=== PATIENT | female | born 1935 | race Caucasian/White ===

== ENCOUNTER 2021-06-17 10:06 | Outpatient (CLI) | payer MEDICARE, OTHER, SELFPAY ==
[2021-06-17 11:05] LABS: C Reactive Protein 6.7 mg/L (0.0-4.9)
[2021-06-17 11:43] LABS: Erythrocyte Sedimentation Rate 41 mm/hr (0-15)
== END 2021-06-17 10:07 | disposition home or self-care (01) ==
LOC: LAB 10:17
PROVIDERS: PCP Nurse Practitioner Family; Visit Provider Orthopaedic Surgery
DX: M25.551 Pain in right hip (principal); M70.61 Trochanteric bursitis, right hip
CPT/HCPCS: 36415; 85651; 86140

== ENCOUNTER 2021-06-24 13:46 | Outpatient (CLI) | payer MEDICARE, OTHER, SELFPAY ==
--- NOTE | 2021-06-24 14:30 | CT_ITS ---
WS: [id number] CT RIGHT HIP WITHOUT CONTRAST. HISTORY: M70.61 - Trochanteric bursitis, right hip Technique: All CT scans at [facility] use at least one of these dose optimization techniq ues: automated exposure control; mA and/or kV adjustment per patient size (includes targeted exams wh ere dose is matched to clinical indication); or iterative reconstruction. DLP: 866.9 mGycm COMPARISON: RIGHT hip radiograph 01/27/2021 Status post RIGHT hip arthroplasty. Position of the arthroplasty appears appropriate. No fractures. N o significant medial migration of the acetabular prosthesis. Subchondral lucency is noted in the supe rior acetabulum. Mild atrophy of the muscles and mild atherosclerotic changes within the femoral tad ry. No fusion of the SI joint. There is significant beam hardening artifact from the total hip arthroplasty along the greater trocha nter. Changes of greater trochanteric bursitis would not be evident. CT/CT hip RT wo con* [id number] IMPRESSION: Status post RIGHT hip arthroplasty which appears in good position and alignmen t. No acute fractures or loosening identified. Greater trochanter is obscured by artifact from the arthroplasty.
== END 2021-06-24 13:47 | disposition home or self-care (01) ==
LOC: RADWPI 13:52 → RAD 14:12
PROVIDERS: PCP Nurse Practitioner Family; Visit Provider Orthopaedic Surgery
DX: M70.61 Trochanteric bursitis, right hip (principal); M25.551 Pain in right hip; Z96.641 Presence of right artificial hip joint
CPT/HCPCS: 73700

== ENCOUNTER 2021-10-07 09:59 | Outpatient (CLI) | payer MEDICARE, OTHER, SELFPAY ==
--- NOTE | 2021-10-07 10:05 | XR_ITS ---
WS: [id number] SHOULDER RIGHT TECHNIQUE: 3 views of the right shoulder CLINICAL INFORMATION: IMPINGEMENT SYNDROME OF RIGHT SHOULDER COMPARISON: None. FINDINGS: Mild hypertrophic changes AC joint. Moderate downsloping acromion. Advanced degenerative arthritis gl enohumeral joint with hypertrophic spurring and joint space narrowing. Associated subchondral scleros is. Narrowing of the subacromial space. IMPRESSION: 1. Advanced degenerative arthritis glenohumeral joint with hypertrophic spurring. 2. Moderate downsloping acromion with narrowing of the subacromial space.
--- NOTE | 2021-10-07 10:05 | XR_ITS ---
WS: [id number] PROCEDURE: XR chest 2V* [id number] CLINICAL INFORMATION: CHEST PAIN, NON-CARDIAC COMPARISON: July 22, 2021 FINDINGS: Heart: Normal cardiac silhouette. Aortic calcification. Tortuous thoracic aorta. Lungs: Lungs are clear. No consolidation or pleural fluid. Moderate chronic emphysematous changes. Bones: Mild thoracic curve. Moderate thoracic kyphosis. Chronic appearing anterior wedging at the tho racolumbar junction XR/XR chest 2V* [id number] IMPRESSION: 1. Moderate chronic emphysematous changes. No acute pulmonary infiltrates. 2. No focal pneumonia or pleural fluid. 3. Moderate thoracic kyphosis with chronic anterior wedging at the thoracolumb ar junction unchanged from previous.
== END 2021-10-07 10:00 | disposition home or self-care (01) ==
PROVIDERS: PCP Nurse Practitioner Family; Visit Provider Family Medicine
DX: M75.41 Impingement syndrome of right shoulder (principal); M19.011 Primary osteoarthritis, right shoulder; R07.9 Chest pain, unspecified; M40.294 Other kyphosis, thoracic region; M48.55XA Collapsed vertebra, not elsewhere classified, thoracolumbar region, initial encounter for fracture
CPT/HCPCS: 71046; 73030

== ENCOUNTER 2021-10-22 08:21 | Outpatient (RCR) | payer MEDICARE, OTHER, SELFPAY | END 2021-10-31 23:59 | disposition home or self-care (01) | LOC: SPT 08:21 | PROVIDERS: PCP Nurse Practitioner Family; Referring Provider Family Medicine; Visit Provider Family Medicine | DX: M75.41 Impingement syndrome of right shoulder (principal) | CPT/HCPCS: 97161 ==

== ENCOUNTER 2021-12-17 08:25 | Outpatient (CLI) | payer MEDICARE, OTHER, SELFPAY ==
--- NOTE | 2021-12-17 08:34 | XR_ITS ---
WS: [id number] HIP WITH PELVIS RIGHT TECHNIQUE: 3 views of the right hip with pelvis CLINICAL INFORMATION: LEG PAIN, RIGHT COMPARISON: January 27, 2021 FINDINGS: Postoperative RIGHT SHARAN. Osteopenia. No acute fractures. Periarticular lucency involving the acetabul um. No evidence of hardware loosening. XR/XR hip RT 2-3V wo/w pel* [id number] IMPRESSION: 1. Normal RIGHT SHARAN. No evidence of hardware loosening. 2. Osteopenia. Periarticular lucency involving the acetabulum unchanged from p revious. 3. No acute fractures. Tonnis classification: na
== END 2021-12-17 08:26 | disposition home or self-care (01) ==
LOC: RAD 08:26
PROVIDERS: PCP Nurse Practitioner Family; Visit Provider Family Medicine
DX: M79.604 Pain in right leg (principal); Z96.641 Presence of right artificial hip joint; M85.88 Other specified disorders of bone density and structure, other site
CPT/HCPCS: 73502

== ENCOUNTER 2021-12-22 08:29 | Outpatient (CLI) | payer MEDICARE, OTHER, SELFPAY ==
--- NOTE | 2021-12-22 08:53 | XR_ITS ---
WS: [id number] Exam: XR femur RT min 2V* [id number] Date/Time of Exam: 12/22/2021 8:56 AM Reason For Exam: RIGHT LEG PAIN Comparison 12/17/2021. No fracture or dislocation. A hip prosthesis is in place in satisfactory position. No change since pr ior study. Normal soft tissues. XR/XR femur RT min 2V* [id number] IMPRESSION: 1. Left hip prosthesis remaining in satisfactory alignment without complication . The femur is otherwise unremarkable.
== END 2021-12-22 08:30 | disposition home or self-care (01) ==
PROVIDERS: PCP Family Medicine; Visit Provider Family Medicine
DX: M79.604 Pain in right leg (principal)
CPT/HCPCS: 73552

== ENCOUNTER → 2021-12-31 11:19 | Outpatient (BNVA) | payer MEDICARE, OTHER, SELFPAY | PROVIDERS: PCP Family Medicine; Visit Provider Orthopaedic Surgery | DX: M25.561 Pain in right knee (principal) | CPT/HCPCS: 73560; 73565 ==

== ENCOUNTER → 2022-04-15 08:53 | Outpatient (BNVA) | payer MEDICARE, OTHER, SELFPAY | PROVIDERS: PCP Family Medicine; Referring Provider Family Medicine; Visit Provider Specialist | DX: Z96.641 Presence of right artificial hip joint (principal); M25.551 Pain in right hip | CPT/HCPCS: 73502; 99203 ==

== ENCOUNTER 2023-01-12 10:39 | Emergency (ER) | payer MEDICARE, SELFPAY ==
[2023-01-12 10:52] VITALS: BMI 26.5
[2023-01-12 10:57] VITALS: BP 133/71; PULSE 93; O2SAT 96
[2023-01-12 11:04] VITALS: TEMP 36.9
--- NOTE | 2023-01-12 11:13 | XRR_ITS ---
PROCEDURE INFORMATION: Exam: XR Ribs Exam date and time: 01/12/2023 11:26 AM Age: 87 years old Clinical indication: Chest wall pain; Bilateral; Patient HX: --antonio rib pain for several weeks no trauma; Additional info: Chest wall pain, posterior bilat TECHNIQUE: Imaging protocol: Radiologic exam of the of the ribs. Views: 3 views. Bilateral ribs. COMPARISON: CR XR chest 2V* [id number] 10/07/2021 10:16 AM FINDINGS: Bones/joints: There is symmetrical narrowing of the glenohumeral joint with sclerosis and bone spurs present. No acute bony abnormalities seen. The visualized ribs are intact. Soft tissues: Normal. XR/XR ribs BI mn 4V w CXR1V [id number] IMPRESSION: 1. Moderate osteoarthritis right shoulder. 2. Otherwise negative examination.
--- NOTE | 2023-01-12 11:14 | W.ED.BACK ---
HPI - Back Pain/Injury General: Chief Complaint: Back Pain/Injury Stated Complaint: sob, bilateral pain, Time Seen by Provider: 01/12/23 11:07 History of Present Illness: Patient presents to the ER with bilateral upper back pain, rib pain and upper abdominal pain all for several weeks. Patient says she has chronic pain in her back and ribs for multiple years since a incident of bending over her chest type freezer. This episode has worsened in the last couple weeks when she started picking up some limbs that fell in her yard. Patient denies any nausea vomiting diaphoresis shortness of breath at this time. MD elicited complaint: back pain (Posterior rib pain) Pertinent past history: prior back pain Onset (ago): week(s) (Chronically worsened in the last couple weeks) Timing: constant Severity: moderate Similar Symptoms Previously: Yes Quality: aching Location: right upper back and left upper back Radiation: none Relieving factors: other (Lying flat remaining motionless) Context: other (While picking up sticks in her yard) Associated symptoms: Reports no associated symptoms; Deny abdominal pain, chills, dysuria, fever(s), nausea or vomiting Work related injury: No Review of Systems General: Reports: 10 or more systems reviewed and unremarkable except in HPI and below Const: Denies: fever(s), chills or body aches Eyes: Denies: change in vision or photophobia ENMT: Denies: throat pain or odynophagia Card: Denies: chest pain, palpitations, irregular heart rhythm or edema Resp: Denies: dyspnea, productive cough, non-productive cough or wheezing GI: Denies: abdominal pain, nausea, vomiting or diarrhea : Denies: flank pain, difficulty voiding, dysuria or urinary frequency Musc: Denies: neck pain, back pain or extremity pain Skin/Breast: Denies: rash, pruritus or erythema Neuro: Denies: headache(s), numbness in extremities or weakness in extremities Psych: Denies: anxiety or depression Endo: Denies: polyuria, polydipsia or tired all the time Pop/Lymph: Denies: easy bruising, easy bleeding or petechiae All/Imm: Denies: urticaria, throat swelling or tongue swelling PFS ED PFSH: Surgical History History of total right hip arthroplasty [address] Sara Wick Social History Smoking and tobacco status: never smoked Physical Exam Const: COMMON NORMALS: no acute distress, average body habitus, patient oriented x3, no limitations, healthy appearing, alert and well nourished HENMT: COMMON NORMALS: normocephalic, atraumatic and hearing grossly normal bilaterally HEAD & SCALP: normocephalic and atraumatic Eye: COMMON NORMALS: Equal, round and reactive pupils present, EOMs intact bilaterally and conjunctivae normal CONJUNCTIVA: Yes conjunctivae normal PUPIL: Yes Equal, round and reactive pupils present Neck/C-Spine: COMMON NORMALS: full ROM, no lymphadenopathy, supple, no JVD and Thyroid normal THYROID: Thyroid normal Lymph: LYMPHATIC: no lymphadenopathy noted Chest: COMMONS NORMALS: normal inspection of the chest and normal palpation of entire chest wall Resp: COMMON NORMALS: normal respiratory effort, No retractions, No use of accessory muscles and clear to auscultation bilaterally AUSCULTATION: clear to auscultation bilaterally Cardio: COMMON NORMALS: no JVD, regular rate, regular rhythm, S1 normal heart sound present and S2 normal heart sound present RATE: regular rate RHYTHM: regular rhythm HEART SOUNDS: S1 normal heart sound present and S2 normal heart sound present GI: COMMON NORMALS: Normal to inspection, nondistended, normoactive bowel sounds present, Soft to palpation, non-tender, No hepatosplenomegaly present and no masses PALPATION: Yes Soft to palpation and Yes No hepatosplenomegaly present Back/Pelvis: OTHER: Tender to palpation over posterior ribs bilaterally and paraspinal muscles bilaterally, no tenderness over thoracic spine medial Extremity: COMMON NORMALS: normal to inspection and full ROM Neuro: COMMON NORMALS: patient oriented x3, CN's II-XII intact bilaterally, moves all extremities, no focal motor deficits and no sensory deficits noted SENSORIUM/ORIENTATION: Yes alert Psych: COMMON NORMALS: mental status grossly normal, Normal thought process present, cooperative, normal affect and speech normal SPEECH: Yes normal speech THOUGHT PROCESS: Normal thought process present Course Vital Signs: Vital signs: Vital Signs Temperature 98.4 F 01/12/23 11:04 Pulse Rate 77 01/12/23 12:12 Respiratory Rate 20 H 01/12/23 12:12 Blood Pressure 146/67 01/12/23 12:12 Pulse Oximetry 93 01/12/23 12:12 Oxygen Delivery Me thod 01/12/23 12:12 MDM - Back Pain/Injury Medical Decision Making Patient presents to the ER with complaints of posterior rib pain, worse with movement and breathing, pain has been going on for years but has worsened in the last couple days since she was picking up sticks in her yard. This pain is reproducible with palpation and movement. Upon further history and physical exam as well as x-rays that showed moderate arthritis of the right shoulder otherwise negative, is felt patient can be discharged home to follow-up with her primary care physician approximately 1 week this was discussed with the patient and friend who are in agreements with this. Differential Diagnosis Likely thoracic back pain; Unlikely lumbar radiculopathy, sciatica or strain of lumbar region Medical Records I reviewed the patient's medical records. Labs I reviewed the patient's lab results. Radiology Impressions Ribs w/Chest X-Ray 01/12/23 11:13 IMPRESSION: 1. Moderate osteoarthritis right shoulder. 2. Otherwise negative examination. Discharge Plan Discharge Patient Disposition: Home Clinical Impression: Acute chest wall pain, Arthritis of right shoulder region Condition: Stable Prescriptions: No Action fluticasone propionate 50 mcg/actuation spray,suspension 1 spray intranasal DAILY Rx Instructions: administer into each nostril omeprazole 20 mg capsule,delayed release(DR/EC) 20 mg PO DAILY zolpidem 5 mg tablet, sublingual 5 mg sublingual BEDTIME ibuprofen 600 mg tablet 600 mg PO Q8H PRN (Reason: Pain) amlodipine 5 mg tablet 5 mg PO DAILY lovastatin 20 mg tablet 20 mg PO DAILY albuterol sulfate 90 mcg/actuation Hfa Aerosol Inhaler 2 puff INHALATION Q4H PRN (Reason: Shortness Of Breath Or Wheezing) levocetirizine 5 mg tablet 5 mg PO DAILY PRN (Reason: Allergy Symptoms) Women's 50 Plus Daily Formula 400 mcg-500 mg calcium-20 mcg Tablet 1 tab PO DAILY Breo Ellipta 200-25 mcg/dose blister with device 1 inh INHALATION DAILY Discharge Orders: Discharge ED (Routine); Ordered 01/12/23 Ordered By: Rogers Savage Referrals: David Hernández MD [Primary Care Provider] - 1 week Discharge Activity: Resume usual activity Patient Instructions: Chest Wall Pain (ED), Arthritis (ED) Coding Level of Care Code ED Apprenticeship Representative for Arash Brooks
[2023-01-12 12:12] VITALS: BP 146/67; PULSE 77; RESP 20; O2SAT 93
[2023-01-12 13:23] VITALS: PULSE 74; O2SAT 92
== END 2023-01-12 13:24 | disposition home or self-care (01) ==
PROVIDERS: Emergency Provider Emergency Medicine; PCP Family Medicine
DX: R07.89 Other chest pain (principal); M19.011 Primary osteoarthritis, right shoulder
CPT/HCPCS: 71111; 99283

== ENCOUNTER 2023-01-20 09:10 | Outpatient (CLI) | payer MEDICARE, SELFPAY ==
--- NOTE | 2023-01-20 09:40 | XRR_ITS ---
PROCEDURE INFORMATION: Exam: XR Abdomen Exam date and time: 01/20/2023 9:41 AM Age: 87 years old Clinical indication: Constipation; Generalized; Prior surgery; Surgery type: RT hip; Patient HX: Chronic abdominal pain, bloating worse past 3 weeks; Additional info: Abdominal bloating TECHNIQUE: Imaging protocol: Radiologic exam of the abdomen. Views: 2 Views. Upright and supine views. COMPARISON: CR XR ribs BI mn 4V w CXR1V [id number] 01/12/2023 11:26 AM FINDINGS: Gastrointestinal tract: Normal. No bowel dilation. Intraperitoneal space: Normal. No free air. Vasculature: The abdominal aorta is calcified. Bones/joints: A total right hip prosthesis is present. XR/XR abdomen min 2V [id number] IMPRESSION: No acute abnormality.
== END 2023-01-20 09:11 | disposition home or self-care (01) ==
LOC: RAD 09:12
PROVIDERS: PCP Family Medicine; Visit Provider Family Medicine
DX: R14.0 Abdominal distension (gaseous) (principal)
CPT/HCPCS: 74019

== ENCOUNTER 2023-06-13 12:45 | Emergency (ER) | payer MEDICARE, SELFPAY ==
[2023-06-13 12:57] VITALS: BP 146/98; PULSE 94; RESP 17; O2SAT 96
--- NOTE | 2023-06-13 13:00 | ED_ITS ---
HPI - Chest Pain General: Chief Complaint: Chest Pain Stated Complaint: pain when going pee Time Seen by Provider: 06/13/23 12:57 Source: patient Mode of arrival: ambulatory History of Present Illness: 87-year-old female presents emergency room complaining of abdominal pain. Its worse at or immediately after she takes her antibiotics. Radiates up into her chest substernally not into her arms neck or back. No associated shortness of breath no fever sweats or chills. She is concerned about the chest discomfort. MD complaint: chest pain and chest heaviness Onset (ago): day(s) Timing of current episode: episodic Prior episodes: Yes Onset: associated with drug use (After taking antibiotics) Pain location: substernal Pain radiation: none Severity: mild Quality: sharp Relieving factors: nothing Exacerbating factors: eating (Taking antibiotics) Associated symptoms: Deny abdominal pain, dyspnea, fever(s), nausea, palpitations or vomiting Review of Systems Const: Denies: fever(s), chills, body aches, change in appetite, fatigue or malaise ENMT: Denies: throat pain, ear or mastoid pain, nasal discharge or nasal congestion Card: Reports: chest pain; Denies: palpitations, irregular heart rhythm, edema, dyspnea on exertion or orthopnea Resp: Denies: dyspnea, productive cough or non-productive cough GI: Denies: abdominal pain, nausea, vomiting, hematemesis, coffee ground emesis, diarrhea, constipation, bloating, hematochezia or melena : Denies: flank pain, difficulty voiding, dysuria, urinary frequency or urinary urgency Skin/Breast: Denies: rash or pruritus PFSH ED PFSH: Surgical History History of total right hip arthroplasty [address] Sara Wick Social History Smoking and tobacco status: never smoked Physical Exam Const: GENERAL APPEARANCE: cooperative and comfortable ORIENTATION/CONSCIOUSNESS: Yes awake, Yes oriented to person, Yes oriented to place and Yes oriented to time HENMT: COMMON NORMALS: normocephalic, atraumatic and hearing grossly normal bilaterally HEAD & SCALP: normocephalic and atraumatic Resp: COMMON NORMALS: normal respiratory effort, No retractions, No use of accessory muscles and clear to auscultation bilaterally AUSCULTATION: clear to auscultation bilaterally Cardio: COMMON NORMALS: regular rate, regular rhythm and No murmurs present (Cardio) RATE: regular rate RHYTHM: regular rhythm GI: COMMON NORMALS: Soft to palpation and No hepatosplenomegaly present AUSCULTATION: Yes normoactive bowel sounds PALPATION: Yes Soft to palpation, No Tenderness to palpation present (GI), No Guarding due to palpation present (GI) and Yes No hepatosplenomegaly present Extremity: COMMON NORMALS: normal to inspection, capillary refill normal, no clubbing, cyanosis or edema, no calf tenderness and no pedal edema Neuro: SENSORIUM/ORIENTATION: Yes oriented to person, Yes oriented to place and Yes oriented to time Skin: COMMON NORMALS: no rashes or lesions noted GENERAL SKIN EXAM: no rashes or lesions noted Course Vital Signs: Vital signs: Vital Signs Pulse Rate 72 06/13/23 17:11 Respiratory Rate 20 H 06/13/23 17:11 Blood Pressure 182/76 06/13/23 17:11 Pulse Oximetry 98 06/13/23 17:11 Oxygen Delivery Me thod Room Air 06/13/23 16:15 MDM - Chest Pain Medical Decision Making Labs and imaging reviewed. Patient was concerned she may have a bladder infection no sign of you bladder infection on the urinalysis today. Cardiac enzymes and EKG did not show any acute changes I think this is all related to reflux from taking her medication. She is going to stop the medication follow- up with primary care doctor return if she has further problems. Medical Records I reviewed the patient's medical records. Lab Data I reviewed the patient's lab results. 06/13/23 13:11 06/13/23 13:11 Radiology Impressions Chest X-Ray 06/13/23 13:01 IMPRESSION: No acute findings. Laboratory Results WBC 6.6 10^3/uL (4.0-10.0) 06/13/23 13:11 RBC 4.01 10^6/uL (4.1-5.3) L 06/13/23 13:11 Hgb 12.4 g/dL (11.5-15.3) 06/13/23 13:11 Hct 36.9 % (37.0-47.0) L 06/13/23 13:11 MCV 92.0 fl (81-99) 06/13/23 13:11 MCH 30.9 pg (28.0-34.0) 06/13/23 13:11 MCHC 33.6 g/dL (30.0-36.0) 06/13/23 13:11 RDW 13.3 % (12.1-15.1) 06/13/23 13:11 Plt Count 162 10^3/cmm (130-400) 06/13/23 13:11 MPV 8.8 fL (7.4-10.4) 06/13/23 13:11 Neut % (Auto) 74.7 % 06/13/23 13:11 Lymph % (Auto) 16.3 % 06/13/23 13:11 [place] % (Auto) 6.8 % 06/13/23 13:11 Eos % (Auto) 1.5 % 06/13/23 13:11 Baso % (Auto) 0.5 % 06/13/23 13:11 Neut # (Auto) 4.91 10^3/uL (1.8-7.7) 06/13/23 13:11 Lymph # (Auto) 1.1 10^3/uL (0.8-4.8) 06/13/23 13:11 [place] # (Auto) 0.5 10^3/uL (0.2-0.9) 06/13/23 13:11 Eos # (Auto) 0.1 10^3/uL (0.0-0.8) 06/13/23 13:11 Baso # (Auto) 0.0 10^3/uL (0.0-0.1) 06/13/23 13:11 Nucleated RBC % (auto) 0 % 06/13/23 13:11 Nucleated RBCs # 0.0 /100WBC 06/13/23 13:11 Sodium 139 mmol/L (136-145) 06/13/23 13:11 Potassium 4.5 mmol/L (3.5-5.1) 06/13/23 13:11 Chloride 102 mmol/L (98-107) 06/13/23 13:11 Carbon Dioxide 25 mmol/L (22-29) 06/13/23 13:11 Anion Gap 16.5 (5-19) 06/13/23 13:11 BUN 16 mg/dL (8-23) 06/13/23 13:11 Creatinine 0.8 mg/dL (0.5-0.9) 06/13/23 13:11 GFR Calculation Not Reportable 06/13/23 13:11 Glucose 138 mg/dL (65-115) H 06/13/23 13:11 Calculated Osmolality 291 mOsm/kg (285-295) 06/13/23 13:11 Calcium 9.0 mg/dL (8.5-10.5) 06/13/23 13:11 Total Bilirubin 0.4 mg/dL (0.15-1.2) 06/13/23 13:11 AST 20 U/L (0-32) 06/13/23 13:11 ALT 11 U/L (0-33) 06/13/23 13:11 Alkaline Phosphatase 85 U/L (35-105) 06/13/23 13:11 Troponin T Baseline 8 ng/L (0-10) 06/13/23 13:11 Troponin T 120 Minute 8.11 ng/L (0-10) 06/13/23 15:41 Delta Troponin T 0.11 ABS# (0-10) 06/13/23 15:41 Total Protein 6.3 g/dL (6.6-8.7) L 06/13/23 13:11 Albumin 4.2 g/dL (3.5-5.2) 06/13/23 13:11 Globulin 2.1 g/dL (1.3-4.6) 06/13/23 13:11 Urine Color Straw (Yellow) 06/13/23 14:20 Urine Appearance Clear (CLEAR) 06/13/23 14:20 Urine pH 6 (5-7) 06/13/23 14:20 Ur Specific [place] 1.010 (1.005-1.030) 06/13/23 14:20 Urine Protein Neg (Negative) 06/13/23 14:20 Urine Glucose (UA) Norm (Normal) 06/13/23 14:20 Urine Ketones Negative (Negative) 06/13/23 14:20 Urine Blood Neg (Negative) 06/13/23 14:20 Urine Nitrate Negative (Negative) 06/13/23 14:20 Urine Bilirubin Neg (Negative) 06/13/23 14:20 Urine Urobilinogen Norm mg/dL (Negative) 06/13/23 14:20 Ur Leukocyte Esterase Negative (Negative) 06/13/23 14:20 Discharge Plan Discharge Patient Disposition: Home Clinical Impression: Chest pain due to gastrointestinal reflux disease, Medication side effect Condition: Stable Prescriptions: No Action fluticasone propionate 50 mcg/actuation spray,suspension 1 spray intranasal DAILY Rx Instructions: administer into each nostril omeprazole 20 mg capsule,delayed release(DR/EC) 20 mg PO DAILY zolpidem 5 mg tablet, sublingual 5 mg sublingual BEDTIME ibuprofen 600 mg tablet 600 mg PO Q8H PRN (Reason: Pain) amlodipine 5 mg tablet 5 mg PO DAILY lovastatin 20 mg tablet 20 mg PO DAILY Dulcolax (bisacodyl) 5 mg Tablet,Delayed Release (Dr/Ec) 10 mg PO DAILY PRN (Reason: Constipation) albuterol sulfate 90 mcg/actuation Hfa Aerosol Inhaler 2 puff INHALATION Q4H PRN (Reason: Shortness Of Breath Or Wheezing) levocetirizine 5 mg tablet 5 mg PO DAILY PRN (Reason: Allergy Symptoms) Women's 50 Plus Daily Formula 400 mcg-500 mg calcium-20 mcg Tablet 1 tab PO DAILY Discharge Orders: Discharge ED (Routine); Ordered 06/13/23 Ordered By: Osman Clark Referrals: David Hernández MD [Primary Care Provider] - Discharge Diet: Usual diet Patient Instructions: Opioid Safety, Pain Management Activity Restrictions/Additional Instructions: Stop the oral antibiotic you have been taking and contact your primary care doctor's office for further instructions. Coding Level of Care Code ED Station Engineer Main Line for Arash Brooks
--- NOTE | 2023-06-13 13:01 | XRR_ITS ---
PROCEDURE INFORMATION: Exam: XR Chest Exam date and time: 06/13/2023 1:27 PM Age: 87 years old Clinical indication: Cough and dyspnea; Additional info: Dyspnea/cough TECHNIQUE: Imaging protocol: Radiologic exam of the chest. Views: 1 view. COMPARISON: CR XR chest 2V* [id number] 10/07/2021 10:16 AM FINDINGS: Lungs: There is no consolidation. Pleural spaces: There is no pleural effusion or pneumothorax. Heart/Mediastinum: Cardiomediastinal contours are unremarkable. Bones/joints: Bones are unremarkable. XR/XR chest 1V portable [id number] IMPRESSION: No acute findings.
--- NOTE | 2023-06-13 13:01 | ECG_ITS ---
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 Measurements Intervals [place] Rate: 78 P: -72 HI: 158 QRS: 28 QRSD: 89 T: 65 QT: 350 QTc: 400 Interpretive Statements SINUS RHYTHM Compared to ECG 02/29/2016 14:04:57 No significant changes Electronically Signed On 06-13-2023 18:24:22 CDT by Robin Longo M.D. [id number]
[2023-06-13 13:22] LABS: Basophils % 0.5 %; Eosinophils # 0.1 10^3/uL (0.0-0.8); Eosinophils % 1.5 %; Hematocrit 36.9 % (37.0-47.0); Hemoglobin 12.4 g/dL (11.5-15.3); Lymphocytes # 1.1 10^3/uL (0.8-4.8); Lymphocytes % 16.3 %; Mean Corpuscular HGB Conc 33.6 g/dL (30.0-36.0); Mean Corpuscular Hemoglobin 30.9 pg (28.0-34.0); Mean Platelet Volume 8.8 fL (7.4-10.4); Monocytes # 0.5 10^3/uL (0.2-0.9); Monocytes % 6.8 %; Neutrophils # 4.91 10^3/uL (1.8-7.7); Neutrophils % 74.7 %; Nucleated Red Blood Cells % 0 %; Platelet Count 162 10^3/cmm (130-400); Red Blood Count 4.01 10^6/uL (4.1-5.3); Red Cell Distribution Width 13.3 % (12.1-15.1); White Blood Count 6.6 10^3/uL (4.0-10.0)
[2023-06-13] MEDS: aspirin 81 mg Chew Tablet 324 MG PO (13:31)
[2023-06-13 13:48] LABS: Alanine Aminotransferase 11 U/L (0-33); Albumin Level 4.2 g/dL (3.5-5.2); Alkaline Phosphatase 85 U/L (35-105); Anion Gap 16.5 (5-19); Aspartate Amino Transferase 20 U/L (0-32); Blood Urea Nitrogen 16 mg/dL (8-23); Carbon Dioxide 25 mmol/L (22-29); Chloride 102 mmol/L (98-107); Globulin 2.1 g/dL (1.3-4.6); Glucose 138 mg/dL (65-115); Osmolality Calculated 291 mOsm/kg (285-295); Potassium 4.5 mmol/L (3.5-5.1); Sodium 139 mmol/L (136-145); Total Bilirubin 0.4 mg/dL (0.15-1.2); Total Protein 6.3 g/dL (6.6-8.7)
[2023-06-13 13:49] LABS: Troponin(5th) Baseline 8 ng/L (0-10)
[2023-06-13 14:23] LABS: Add Urine Microscopic? NO; Charge for UA Resulting for Rev
[2023-06-13 14:32] LABS: Bilirubin Urine Neg (Negative); Blood Urine Neg (Negative); Glucose Urine UA Norm (Normal); Ketones Urine Negative (Negative); Leukocyte Esterase Urine Negative (Negative); Nitrate Urine Negative (Negative); Protein Urine Neg (Negative); Urine Appearance Clear (CLEAR); Urine Color Straw (Yellow); Urobilinogen Urine Norm (Negative); pH Urine 6 (5-7)
--- NOTE | 2023-06-13 15:30 | ECG_ITS ---
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 Measurements Intervals [place] Rate: 68 P: 52 MN: 179 QRS: 26 QRSD: 90 T: 60 QT: 373 QTc: 399 Interpretive Statements SINUS RHYTHM Compared to ECG 06/13/2023 12:59:50 No significant changes Electronically Signed On 06-13-2023 18:26:34 CDT by Robin Longo M.D. [id number]
[2023-06-13 15:59] VITALS: BP 174/79; PULSE 72; RESP 21; O2SAT 98
[2023-06-13 16:15] VITALS: BP 174/79; PULSE 73; RESP 16; O2SAT 97
[2023-06-13 17:10] LABS: Troponin 5 2HR 8.11 ng/L (0-10); Troponin 5 2HR Delta 0.11 ABS# (0-10)
[2023-06-13 17:11] VITALS: BP 182/76; PULSE 72; RESP 20; O2SAT 98
== END 2023-06-13 17:13 | disposition home or self-care (01) ==
PROVIDERS: Emergency Provider Family Medicine; PCP Family Medicine
DX: R07.89 Other chest pain (principal); K21.9 Gastro-esophageal reflux disease without esophagitis
CPT/HCPCS: 71045; 80053; 81003; 84484; 85025; 93005; 99285

== ENCOUNTER 2023-07-28 09:27 | Outpatient (CLI) | payer MEDICARE, SELFPAY ==
--- NOTE | 2023-07-28 09:43 | XRR_ITS ---
PROCEDURE INFORMATION: Exam: XR Right Hip Exam date and time: 07/28/2023 9:59 AM Age: 87 years old Clinical indication: Hip pain; Right hip; Prior surgery; Surgery date: 6+ months; Additional info: Pain in right hip TECHNIQUE: Imaging protocol: Radiologic exam of the right hip. Views: 1 view hip with pelvis when performed. COMPARISON: 1. CR XR hip RT 2-3V wo/w pel* [id number] 04/15/2022 9:08 AM 2. CR XR hip RT 2-3V wo/w pel* [id number] 12/17/2021 8:[address] hip RT wo con* [id number] 06/24/2021 3:25 PM 4. CR XR hip RT 2-3V wo/w pel* [id number] 01/27/2021 9:39 AM FINDINGS: Bones/joints: Intact right total hip arthroplasty with intervally stable alignment of the prosthetic components. There does appear to be increased angulation of the acetabular component since December 2021. There is also axial migration since April 2022 with slight protrusion at the iliopectineal line on frogleg lateral view. Similar to mild increased conspicuity of lucency superior and inferior to the acetabular component compared to December 2020. Increased lucency at the greater trochanter compared to December 2020. Background of gradual diffuse bony demineralization. Right sacroiliac joint degenerative change. Soft tissues: Unremarkable. XR/XR hip RT 2-3V wo/w pel* [id number] IMPRESSION: 1. No evidence of acute fracture or dislocation. 2. Findings of acetabular component migration and increased conspicuity of adjacent lucency at the acetabulum as well as the greater trochanter, which may indicate particle disease versus sequela of diffusely progressed bony demineralization/osteopenia.
--- NOTE | 2023-07-28 09:43 | XRR_ITS ---
PROCEDURE INFORMATION: Exam: XR Right Knee Exam date and time: 07/28/2023 9:59 AM Age: 87 years old Clinical indication: Pain; Knee; Right; Additional info: R knee pain TECHNIQUE: Imaging protocol: Radiologic exam of the right knee. Views: 3 views. COMPARISON: CR XR knees AP WB w RT lmt ORTH 12/31/2021 11:26 AM FINDINGS: Bones/joints: Diffusely demineralized bones without evidence of acute fracture or dislocation. Joint spacing and alignment are maintained with trace spurring at the patella articular surface. Small quadriceps insertional enthesophyte. Soft tissues: Unremarkable. Vasculature: Mild popliteal artery calcification. XR/XR knee RT 3V* [id number] IMPRESSION: Osteopenia without evidence of acute fracture or dislocation.
== END 2023-07-28 09:28 | disposition home or self-care (01) ==
PROVIDERS: PCP Family Medicine; Visit Provider Family Medicine
DX: M25.551 Pain in right hip (principal); M85.861 Other specified disorders of bone density and structure, right lower leg; Z98.890 Other specified postprocedural states
CPT/HCPCS: 73502; 73562

== ENCOUNTER 2023-08-18 12:41 | Outpatient (CLI) | payer MEDICARE, SELFPAY ==
--- NOTE | 2023-08-18 12:50 | XR_ITS ---
WS: [id number] DEXA (DUAL ENERGY X-RAY ABSORPTIOMETRY) Bone mineral density was performed using a Uskape machine. HISTORY: OSTEOPENIA COMPARISON: None available. Lumbar spine BMD (L2-L4): 0.699 T score: -4.2 Z score: -2.1 Total hip BMD: Left: 0.585 (g/cm2). T score: -3.4 (no units) Z score: -0.9 (no units) Left forearm BMD: 0.564 g/cm2. T score: -3.6 Z score: -0.1 10 year probability of a major osteoporotic fracture is 43.9% IMPRESSION: OSTEOPOROSIS based upon the WHO classification for females.
== END 2023-08-18 12:42 | disposition home or self-care (01) ==
LOC: RAD 12:42
PROVIDERS: PCP Family Medicine; Visit Provider Family Medicine
DX: M81.0 Age-related osteoporosis without current pathological fracture (principal)
CPT/HCPCS: 77080

== ENCOUNTER 2024-05-21 09:28 | Emergency (ER) | payer MEDICARE, SELFPAY ==
[2024-05-21 09:33] VITALS: BP 153/75; PULSE 89; TEMP 36.6; O2SAT 96
--- NOTE | 2024-05-21 09:42 | XRR_ITS ---
PROCEDURE INFORMATION: Exam: XR Chest Exam date and time: 05/21/2024 9:54 AM Age: 88 years old Clinical indication: Shortness of breath TECHNIQUE: Imaging protocol: Radiologic exam of the chest. Views: 1 view. COMPARISON: CR XR chest 1V portable [id number] 06/13/2023 1:27 PM FINDINGS: Lungs: Hyperinflated emphysematous lungs. Left lower lung zone fibrotic changes. No focal consolidation. Pleural spaces: Unremarkable. No pleural effusion. No pneumothorax. Heart/Mediastinum: Unremarkable. No cardiomegaly. Vasculature: Aortic arch calcifications. Unfolding of the thoracic aorta. Bones/joints: Moderate degenerative disease of bilateral acromioclavicular and bilateral glenohumeral joints. XR/XR chest 1V portable [id number] IMPRESSION: No acute cardiopulmonary process.
--- NOTE | 2024-05-21 10:33 | ED_ITS ---
HPI - General Adult General: Chief complaint: General Medical Stated complaint: cough, leg pain, insomnia, jaw pain Time Seen by Provider: 05/21/24 09:37 History of Present Illness: 88-year-old female who presents emergenc y room with multiple complaints. She has had a dental infection and is on amoxicillin. She had done a course and stopped and then restarted again on Wednesday secondary to her dentist advice. She still having pain in her left jaw. She also complains of a cough that has been keeping her awake. Review of Systems Narrative: Constitutional symptoms: Negative except as documented in HPI. Skin symptoms: Negative except as documented in HPI. Eye symptoms: Negative except as documented in HPI. ENMT symptoms: Negative except as documented in HPI. Respiratory symptoms: Negative except as documented in HPI. Cardiovascular symptoms: Negative except as documented in HPI. Gastrointestinal symptoms: Negative except as documented in HPI. Genitourinary symptoms: Negative except as documented in HPI. Musculoskeletal symptoms: Negative except as documented in HPI. Neurologic symptoms: Negative except as documented in HPI. Psychiatric symptoms: Negative except as documented in HPI. Endocrine symptoms: Negative except as documented in HPI. PFSH ED PFSH: Surgical History History of total right hip arthroplasty [address] Sara Wick Social History Smoking and tobacco/nicotine status: never used tobacco/nicotine Physical Exam Narrative: EXAM NARRATIVE: General: Alert, no acute distress. Skin: Warm, dry. Head: Normocephalic, atraumatic. Neck: Supple, trachea midline. Eye: Extraocular movements are intact. Ears, nose, mouth and throat: mucosa moist. Does have some swelling around her lower molars with some dental caries Cardiovascular: Regular, Normal peripheral perfusion. Respiratory: Lungs are clear to auscultation, respirations are non-labored, breath sounds are equal, Symmetrical chest wall expansion. Gastrointestinal: Soft, Nontender, Non distended Musculoskeletal: Normal ROM, no deformity. Neurological: Alert and oriented, No focal neurological deficit observed. Psychiatric: Cooperative, appropriate mood & affect. Course Vital Signs: Vital signs: Vital Signs Temperature 97.9 F 05/21/24 09:33 Pulse Rate 89 05/21/24 09:33 Blood Pressure 153/75 05/21/24 09:33 Pulse Oximetry 96 05/21/24 09:33 Oxygen Delivery Me thod Room Air 05/21/24 09:33 MDM - General Adult Medical Decision Making Chest x-ray: No acute process. No infiltrate. No pneumothorax. This was reviewed and interpreted by myself the ER physician. Lab Review: Laboratory results were reviewed and interpreted by myself the emergency room physician. Respiratory panel is negative I reviewed the patient's medical record. Reexamination: Patient remained stable. No increased work of breathing. No altered mental status. No focal motor deficits. Assessment and plan: Dental infection Cough - Discharged home - Discussed plan with patient. Answered any questions. - Evaluation and treatment of this problem were appropriate in the emergency setting. Lab Data Radiology Impressions Chest X-Ray 05/21/24 09:42 IMPRESSION: No acute cardiopulmonary process. Laboratory Results Adenovirus (PCR) Not detected (NOT DETECT) 05/21/24 09:53 C. pneumoniae DNA (PCR) Not detected (NOT DETECT) 05/21/24 09:53 Coronavirus 229E (PCR) Not detected (NOT DETECT) 05/21/24 09:53 Human Metapneumovir PCR Not detected (NOT DETECT) 05/21/24 09:53 Influenza A (H1) PCR Not detected (NOT DETECT) 05/21/24 09:53 Influ A (H1/09) PCR Not detected (NOT DETECT) 05/21/24 09:53 Influenza A (H3) PCR Not detected (NOT DETECT) 05/21/24 09:53 Influenza Type A (PCR) Not detected (NOT DETECT) 05/21/24 09:53 Influenza Type B (PCR) Not detected (NOT DETECT) 05/21/24 09:53 M. pneumoniae (PCR) Not detected (NOT DETECT) 05/21/24 09:53 Parainfluenza 1 (PCR) Not detected (NOT DETECT) 05/21/24 09:53 Parainfluenza 2 (PCR) Not detected (NOT DETECT) 05/21/24 09:53 Parainfluenza 3 (PCR) Not detected (NOT DETECT) 05/21/24 09:53 Parainfluenza 4 (PCR) Not detected (NOT DETECT) 05/21/24 09:53 RSV Type A (PCR) Not detected (NOT DETECT) 05/21/24 09:53 RSV Type B (PCR) Not detected (NOT DETECT) 05/21/24 09:53 Entero/Rhino (PCR) Not detected (NOT DETECT) 05/21/24 09:53 SARS-CoV-2 (PCR) Not detected (NOT DETECT) 05/21/24 09:53 All radiology interpretation(s) finalized by discharge Discharge Plan Discharge Patient Disposition: Home Clinical Impression: Dental infection, Cough Condition: Stable Prescriptions: New benzonatate 200 mg capsule 200 mg PO TID PRN (Reason: cough) Qty: 30 0RF amoxicillin-pot clavulanate 875-125 mg tablet 1 tab PO BID 10 Days Qty: 20 0RF codeine-guaifenesin 10-100 mg/5 mL liquid 5 ml PO Q6H PRN (Reason: cough) Qty: 120 0RF tramadol 50 mg tablet 50 mg PO Q8H PRN (Reason: pain) Qty: 20 0RF No Action fluticasone propionate 50 mcg/actuation spray,suspension 1 spray intranasal DAILY Rx Instructions: administer into each nostril omeprazole 20 mg capsule,delayed release(DR/EC) 20 mg PO DAILY zolpidem 5 mg tablet, sublingual 5 mg sublingual BEDTIME ibuprofen 600 mg tablet 600 mg PO Q8H PRN (Reason: Pain) amlodipine 5 mg tablet 5 mg PO DAILY lovastatin 20 mg tablet 20 mg PO DAILY Dulcolax (bisacodyl) 5 mg Tablet,Delayed Release (Dr/Ec) 10 mg PO DAILY PRN (Reason: Constipation) albuterol sulfate 90 mcg/actuation Hfa Aerosol Inhaler 2 puff INHALATION Q4H PRN (Reason: Shortness Of Breath Or Wheezing) levocetirizine 5 mg tablet 5 mg PO DAILY PRN (Reason: Allergy Symptoms) Women's 50 Plus Daily Formula 400 mcg-500 mg calcium-20 mcg Tablet 1 tab PO DAILY Discharge Orders: Discharge ED (Routine); Ordered 05/21/24 Ordered By: Cierra Lazo Discharge Diet: Usual diet Discharge Activity: Increase activity as tolerated Patient Instructions: Opioid Safety, Pain Management Activity Restrictions/Additional Instructions: Please follow-up with the dentist as soon as possible Thank you for choosing [facility] for your healthcare needs today. Please realize this is an emergency room and that we are providing you with a medical screening exam and this may not be complete and all inclusive of all the testing and or work up that you may need to determine your ailment or severity of your illness. You have been screened and evaluated and felt safe for discharge. Health conditions do change or evolve sometimes and as such it is important that you follow up with your Primary Doctor to be re checked, 3-5 days is a general good time frame for follow up. You are always welcome to return to the ED for re assessment if your symptoms are worsening or you have new concerns Coding Level of Care Code ED Aircraft Motor Mechanic for Arash Brooks
[2024-05-21 11:51] LABS: Adenovirus Not Detected (NOT DETECT); Chlamydia Pneumoniae Not Detected (NOT DETECT); Coronavirus 229E,HKU1,NL63,OC4 Not Detected (NOT DETECT); Human Metapneumovirus Not Detected (NOT DETECT); Human Rhinovirus/Enterovirus Not Detected (NOT DETECT); Influenza A Not Detected (NOT DETECT); Influenza A H1 Not Detected (NOT DETECT); Influenza A H1-2009 Not Detected (NOT DETECT); Influenza A H3 Not Detected (NOT DETECT); Influenza B Not Detected (NOT DETECT); Mycoplasma Pneumoniae Not Detected (NOT DETECT); Parainfluenza Virus Type 1 Not Detected (NOT DETECT); Parainfluenza Virus Type 2 Not Detected (NOT DETECT); Parainfluenza Virus Type 3 Not Detected (NOT DETECT); Parainfluenza Virus Type 4 Not Detected (NOT DETECT); Respiratory Syncytial Virus A Not Detected (NOT DETECT); Respiratory Syncytial Virus B Not Detected (NOT DETECT); SARS-COV-2 Not Detected (NOT DETECT)
== END 2024-05-21 12:08 | disposition home or self-care (01) ==
PROVIDERS: Emergency Provider Emergency Medicine
DX: K04.7 Periapical abscess without sinus (principal); R05.9 Cough, unspecified; Z11.52 Encounter for screening for COVID-19
CPT/HCPCS: 71045; 87486; 87581; 87633; 99284

== ENCOUNTER → 2024-05-31 09:22 | Outpatient (BNVA) | payer MEDICARE, SELFPAY | PROVIDERS: PCP Family Medicine; Visit Provider Specialist | DX: Z96.641 Presence of right artificial hip joint (principal) | CPT/HCPCS: 73502; 99213 ==

== ENCOUNTER 2024-06-01 12:08 | Emergency (ER) | payer MEDICARE, SELFPAY ==
[2024-06-01 12:19] VITALS: BP 125/69; PULSE 82; RESP 18; TEMP 36.7; O2SAT 97; BMI 24.7
--- NOTE | 2024-06-01 13:41 | XR_ITS ---
WS: [id number] Pelvis, AP pelvis, 06/01/2024 Clinical Data: fall/right hip pain Comparison: AP pelvis and right hip, 05/31/2024 Findings: The right hip arthroplasty remains in the same position. No periprosthetic fractures or loosening is seen. There is no dislocation of the prosthesis. The cystic change adjacent to the roof of the right acetabulum and the right greater trochanter remain the same. The pelvis and left hip show no change. XR/XR pelvis 1-2V* [id number] Impression: 1. Stable right hip arthroplasty. 2. Negative for pelvic or hip fractures.
--- NOTE | 2024-06-01 13:41 | XR_ITS ---
WS: [email or web address] Cervical spine, 4 views, 06/01/2024 Clinical Data: fall/upper back pain Comparison: None. Findings: No compression fractures are seen. There is diffuse osteoporosis. The shoulder overlaps th e C7 vertebral body on the lateral view. There is multilevel degenerative disc narrowing with only C5 -C6 appearing normal. There is no prevertebral soft tissue swelling. The odontoid is unremarkable. Th e soft tissues of the neck and the lung apices are normal. XR/XR cervical spine 3V* [id number] Impression: 1. Negative for obvious cervical spine compression fracture. 2. Multilevel degenerative disc narrowing. 3. Osteoporosis of all the cervical vertebral bodies.
--- NOTE | 2024-06-01 13:41 | XR_ITS ---
WS: [email or web address] Lumbar spine, 3 views, 06/01/2024 Clinical Data: fall/low back pain Comparison: None. Findings: There is diffuse osteoporosis of the lumbar vertebral bodies. There is a compression fracture of the L1 vertebral body with loss of 50% of the central vertebral body height. There are spurs of the L1 an d L2 vertebral bodies. There is an anterior subluxation of 0.4 cm of L4 on L5. There is degenerative disc narrowing at L4-L5 and L5-S1. There is a right hip arthroplasty. The abdominal aorta shows calcification but there is n o aneurysm. XR/XR lumbar spine 2-3V* [id number] Impression: 1. Compression fracture of L1 of indeterminate age. 2. Anterior subluxation of 0.4 cm of L4 on L5. 3. Osteoporosis, osteoarthritis and multilevel degenerative disc narrowing.
--- NOTE | 2024-06-01 13:41 | XR_ITS ---
WS: [email or web address] Thoracic spine, 3 views, 06/01/2024 Clinical Data: fall/mid backpain Comparison: None. Findings: There is diffuse osteoporosis of the thoracic vertebral bodies. There are multiple compression fractu res. The most severe compression fracture involves loss of 75% of the anterior and central vertebral body height of T8. Vertebral bodies T5, T7, T11 and L1 show 25 to 50% compression. There is increased kyphosis of the thoracic spine. The paravertebral regions are unremarkable. The thoracic aorta shows calcification but no aneurysm. XR/XR thoracic spine 3V* [id number] Impression: 1. Multiple thoracic and pression fractures of indeterminate age. 2. Marked thoracic kyphosis. 3. Osteoporosis of the thoracic vertebral bodies.
[2024-06-01] MEDS: HYDROcodone-acetaminophen 5-325 mg Tablet 1 TAB PO (14:35)
[2024-06-01 14:50] VITALS: RESP 18
--- NOTE | 2024-06-01 15:11 | W.ED.BACK ---
HPI - Back Pain/Injury General: Chief Complaint: Back Pain/Injury Stated Complaint: fall--back pain--hip pain. has had hip surgery Time Seen by Provider: 06/01/24 12:32 Source: patient and family Mode of arrival: wheelchair Limitations: no limitations History of Present Illness: Patient is an 88-year-old female presents the emergency department due to low back pain beginning last night. Patient states that around 2200 she went to the bathroom, and fell asleep while walking and fell over her toilet. She states that she was able to get up, however upon attempting to get up she felt a pop in her low back. She did not think much of it, but mention something to her daughter today while at the dentist about hearing a pop and having pain, so daughter brought patient in for evaluation. She has history of right hip prosthesis, currently has been seeing Dr. Pal for this. Pain is noted to be to the low back, however there are no red flag back symptoms reported such as no incontinence or distal numbness/weakness/tingling. In regards to the fall, there was no head trauma, loss of consciousness, or prolonged downtime. Normally the patient is ambulatory with a cane, no changes of this. She does state the pain is a 9/10 at this time, however per the patient she was not going to come in today. Has been taking ibuprofen for pain. Patient does live alone, no history of frequent falls. No symptoms prior to the fall, states that it was entirely accidental. MD elicited complaint: back pain Onset (ago): hour(s) Timing: constant Severity: severe Similar Symptoms Previously: No Location: lumbar spine Radiation: none Context: fall Associated symptoms: Reports no associated symptoms; Deny abdominal pain, chills, fever(s), nausea or vomiting Work related injury: No Review of Systems General: Reports: 10 or more systems reviewed and unremarkable except in HPI and below Const: Denies: fever(s) or chills Card: Denies: chest pain Resp: Denies: dyspnea or productive cough GI: Denies: abdominal pain, nausea, vomiting or diarrhea : Denies: flank pain Musc: Reports: back pain (Status post fall); Denies: neck pain, extremity pain, extremity swelling, joint pain, joint swelling, joint redness, joint warmth, limited range of motion or muscle weakness Skin/Breast: Denies: rash Neuro: Denies: headache(s), numbness in extremities or weakness in extremities PFSH ED PFSH: Surgical History History of total right hip arthroplasty [address] Sara Wcik Social History Smoking and tobacco/nicotine status: never used tobacco/nicotine Physical Exam Const: COMMON NORMALS: no acute distress, patient oriented x3, no limitations, healthy appearing, alert and well nourished HENMT: COMMON NORMALS: normocephalic and atraumatic HEAD & SCALP: normocephalic and atraumatic Neck/C-Spine: COMMON NORMALS: full ROM, supple and no meningeal signs Resp: COMMON NORMALS: normal respiratory effort, No use of accessory muscles and clear to auscultation bilaterally AUSCULTATION: clear to auscultation bilaterally Cardio: COMMON NORMALS: regular rate and regular rhythm RATE: regular rate RHYTHM: regular rhythm : COMMON NORMALS: Yes no CVA tenderness BLADDER/KIDNEY EXAM: Yes no CVA tenderness Back/Pelvis: COMMON NORMALS: no CVA tenderness THORACIC SPINE/UPPER BACK: Yes normal to inspection and Yes thoracic ROM normal LUMBAR SPINE/LOWER BACK: Yes normal to inspection and Yes lumbar ROM normal OTHER: No reproducible tenderness to palpation of the thoracic or lumbar spine. No obvious signs of trauma or step-off deformity Extremity: COMMON NORMALS: normal to inspection, full ROM, capillary refill normal, no joint enlargement and no clubbing, cyanosis or edema Neuro: COMMON NORMALS: patient oriented x3, moves all extremities, no focal motor deficits and no sensory deficits noted SENSORIUM/ORIENTATION: Yes alert MENINGEAL SIGNS: Yes no meningeal signs Skin: COMMON NORMALS: no rashes or lesions noted GENERAL SKIN EXAM: no rashes or lesions noted Course Vital Signs: Vital signs: Vital Signs Temperature 98.0 F 06/01/24 12:19 Pulse Rate 82 06/01/24 12:19 Respiratory Rate 18 06/01/24 14:50 Blood Pressure 125/69 06/01/24 12:19 Pulse Oximetry 97 06/01/24 12:19 MDM - Back Pain/Injury Medical Decision Making Patient brought in by daughter for evaluation of low back pain, had a fall last night patient felt a pop while attempting to get up. Patient came straight from dentist office, as patient was not thinking much of this pain. She does see Dr. Pal for follow-up visits after right hip replacement. Vitals normal on arrival and her condition has remained stable throughout the ED course. Patient did report severe back pain, though did appear comfortable and was witnessed ambulatory with and without cane into the emergency department. All of her x-rays did not reveal any significant/immediate surgical findings, and upon giving the patient Cope and rechecking her she states she does feel better. I will refer her to Dr. Madrid, application development specialist, for further evaluation for these findings, and patient will be discharged home at this time. Dr. Juan made aware of patient's case and current findings and agrees with disposition at this time. Labs Radiology Impressions Cervical Spine X-Ray 06/01/24 13:41 Impression: 1. Negative for obvious cervical spine compression fracture. 2. Multilevel degenerative disc narrowing. 3. Osteoporosis of all the cervical vertebral bodies. Lumbar Spine X-Ray 06/01/24 13:41 Impression: 1. Compression fracture of L1 of indeterminate age. 2. Anterior subluxation of 0.4 cm of L4 on L5. 3. Osteoporosis, osteoarthritis and multilevel degenerative disc narrowing. Pelvis X-Ray 06/01/24 13:41 Impression: 1. Stable right hip arthroplasty. 2. Negative for pelvic or hip fractures. Thoracic Spine X-Ray 06/01/24 13:41 Impression: 1. Multiple thoracic and pression fractures of indeterminate age. 2. Marked thoracic kyphosis. 3. Osteoporosis of the thoracic vertebral bodies. All radiology interpretation(s) finalized by discharge Discharge Plan Discharge Patient Disposition: Home Clinical Impression: Chronic low back pain, History of arthroplasty of right hip Condition: Stable Prescriptions: No Action fluticasone propionate 50 mcg/actuation spray,suspension 1 spray intranasal DAILY PRN (Reason: ALLERGIES) Rx Instructions: administer into each nostril omeprazole 20 mg capsule,delayed release(DR/EC) 20 mg PO DAILY zolpidem 5 mg tablet, sublingual 5 mg sublingual BEDTIME ibuprofen 600 mg tablet 600 mg PO Q8H PRN (Reason: Pain) amlodipine 5 mg tablet 5 mg PO DAILY lovastatin 20 mg tablet 20 mg PO DAILY bisacodyl [Dulcolax (bisacodyl)] 5 mg Tablet,Delayed Release (Dr/Ec) 10 mg PO DAILY PRN (Reason: Constipation) levocetirizine 5 mg tablet 5 mg PO DAILY PRN (Reason: Allergy Symptoms) Women's 50 Plus Daily Formula 400 mcg-500 mg calcium-20 mcg Tablet 1 tab PO DAILY benzonatate 200 mg capsule 200 mg PO TID PRN (Reason: cough) Qty: 30 0RF codeine-guaifenesin 10-100 mg/5 mL liquid 5 ml PO Q6H PRN (Reason: cough) Qty: 120 0RF tramadol 50 mg tablet 50 mg PO Q8H PRN (Reason: pain) Qty: 20 0RF cholecalciferol (vitamin D3) 25 mcg (1,000 unit) tablet 1,000 mcg PO DAILY Discharge Orders: Discharge ED (Routine); Ordered 06/01/24 Ordered By: Liam Encinas Referrals: Luanne Clements MD [Primary Care Provider] - Discharge Diet: Usual diet Discharge Activity: Increase activity as tolerated Patient Instructions: Pain Management Activity Restrictions/Additional Instructions: Follow-up with Dr. Madrid as discussed. You may also continue your follow-ups with Dr. Wick. Tylenol or ibuprofen at home for pain relief. Avoid reinjury. Please monitor for any new or worsening of symptoms, including worsening of pain, and return for reevaluation as needed. Coding Level of Care Code ED Industrial Electrical Technician for Arash Brooks
--- NOTE | 2024-06-01 17:57 | DCPLANNER ---
messaged ortho for er f/u
== END 2024-06-01 14:52 | disposition home or self-care (01) ==
PROVIDERS: Emergency Provider Physician Assistant; PCP Family Medicine
DX: M54.50 Low back pain, unspecified (principal); G89.29 Other chronic pain; Z96.641 Presence of right artificial hip joint
CPT/HCPCS: 72040; 72072; 72100; 72170; 99284

== ENCOUNTER → 2024-06-15 08:48 | Outpatient (BNVA) | payer MEDICARE, SELFPAY | PROVIDERS: PCP Family Medicine; Visit Provider Orthopaedic Surgery | DX: M43.16 Spondylolisthesis, lumbar region (principal) | CPT/HCPCS: 72110; 99204 ==

== ENCOUNTER 2024-06-19 15:18 | Emergency (ER) | payer MEDICARE, SELFPAY ==
[2024-06-19 15:47] VITALS: BP 157/99; PULSE 100; TEMP 36.8; O2SAT 96
--- NOTE | 2024-06-19 15:59 | ED_ITS ---
HPI - Extremity Problem General: Chief complaint: Extremity Injury, Lower Stated complaint: left hip and back pain Time Seen by Provider: 06/19/24 15:43 Source: patient Mode of arrival: ambulatory Limitations: no limitations History of Present Illness: Patient is a nice 88-year-old female presents to ED today with complaint of left hip pain. Patient states she saw Dr. Wick on 05/31 for evaluation of right hip pain. She then presented to the emergency department on 06/01 following a fall. She had several x-rays performed on that visit showing some indeterminate compression fractures. She followed up with Dr. Madrid on 06/15 for her lower back pain. He had originally requested for MRI but patient declined. Plan was for home physical therapy and follow-up in 4 weeks. Patient states edmund aguilar 2 to 3 days ago her left hip began hurting. No injury or trauma. She currently is not having any back discomfort. She is not having any numbness or tingling to her leg. She has not noticed any swelling to the extremity. She states she is not having any pain at time of my examination and only has discomfort when she goes from a sitting to standing position and while walking. MD Complaint: joint pain Onset (ago): day(s) Pain Consistency: intermittent Location: left and lower extremity (hip) Radiation: none Relieving factors: immobilization Exacerbating factors: weight bearing Associated symptoms: Reports no associated symptoms; Deny chest pain, fever(s) or rash Related Data Home Medications Medication Instructions Recorded Confirmed amlodipine 5 mg tablet 5 mg PO DAILY 02/19/21 06/15/24 fluticasone propionate 50 1 spray intranasal DAILY PRN 02/19/21 06/15/24 mcg/actuation nasal ALLERGIES spray,suspension ibuprofen 600 mg tablet 600 mg PO Q8H PRN Pain 02/19/21 06/15/24 lovastatin 20 mg tablet 20 mg PO DAILY 02/19/21 06/15/24 omeprazole 20 mg capsule,delayed 20 mg PO DAILY 02/19/21 06/15/24 release zolpidem 5 mg sublingual tablet 5 mg sublingual BEDTIME 02/19/21 06/15/24 levocetirizine 5 mg tablet 5 mg PO DAILY PRN Allergy Symptoms 01/12/23 06/15/24 agtwhoma-ijq-wxayg ac 400 1 tab PO DAILY 01/12/23 06/15/24 mcg-calcium carb 500 mg-vit K1 20 mcg tablet (Women's 50 Plus Daily Formula) bisacodyl 5 mg tablet,delayed 10 mg PO DAILY PRN Constipation 06/13/23 06/15/24 release (Dulcolax (bisacodyl)) cholecalciferol (vitamin D3) 25 1,000 mcg PO DAILY 06/01/24 06/15/24 mcg (1,000 unit) tablet Previous Rx's Medication Instructions Recorded benzonatate 200 mg capsule 200 mg PO TID PRN cough #30 caps 05/21/24 methylprednisolone 4 mg tablets in See Rx Instructions PO .COMPLEX 06/19/24 a dose pack (Medrol (Garcia)) #21 ea tramadol 50 mg tablet 50 mg PO Q8H PRN pain #14 tabs 06/19/24 Allergies Allergy/AdvReac Type Severity Reaction Status Date / Time celecoxib [From Celebrex] Allergy ALGY-Hives Verified 06/19/24 15:57 Review of Systems Const: Denies: fever(s) Card: Denies: chest pain Resp: Denies: dyspnea Musc: Reports: joint pain (bilateral hips; L hip began hurting 2-3 days ago; saw Shamika for R hip); Denies: neck pain, back pain, extremity pain, extremity swelling, joint swelling, joint redness, joint warmth or limited range of motion Skin/Breast: Denies: rash Neuro: Denies: numbness in extremities, weakness in extremities or sensory changes PFSH ED PFSH: Surgical History History of total right hip arthroplasty [address] Sara Wick Social History Smoking and tobacco/nicotine status: never used tobacco/nicotine Physical Exam Const: COMMON NORMALS: no acute distress, average body habitus, patient oriented x3, no limitations, healthy appearing, alert and well nourished GENERAL APPEARANCE: cooperative HENMT: COMMON NORMALS: normocephalic and atraumatic HEAD & SCALP: normocephalic and atraumatic Back/Pelvis: COMMON NORMALS: thoracic and lumbar spine normal to inspection THORACIC SPINE/UPPER BACK: No thoracic spinal tenderness LUMBAR SPINE/LOWER BACK: No lumbar spinal tenderness PELVIS: Yes buttocks normal and No sciatic notch tenderness SACRUM: no tenderness COCCYX: no tenderness OTHER: pt is not having any back pain with palpation Extremity: COMMON NORMALS: normal to inspection, full ROM, capillary refill normal, no joint enlargement, no clubbing, cyanosis or edema, no calf tenderness and no pedal edema GENERAL: Yes normal exam except as noted LEFT LOWER EXTREMITY: Yes hip joint (full painless ROM of L hip while lying down) Left hip: Yes inspection (normal inspection ) and Yes neurovascular exam (normal) OTHER: pain to L lateral hip when going from a lying to seated position and seated to standing position and with walking/squatting Neuro: COMMON NORMALS: patient oriented x3, moves all extremities, no focal motor deficits and no sensory deficits noted SENSORIUM/ORIENTATION: Yes alert Course Vital Signs: Vital signs: Vital Signs Temperature 98.3 F 06/19/24 15:47 Pulse Rate 100 06/19/24 15:47 Blood Pressure 157/99 06/19/24 15:47 Pulse Oximetry 96 06/19/24 15:47 Oxygen Delivery Me thod Room Air 06/19/24 15:47 MDM - Extremity (Nontraumatic) Medical Decision Making Patient has not had any injury or trauma. I do not believe x-rays of the left hip would yield much at this time. My suspicion is possibly a left hip bursitis most likely due from overcompensation from her right hip pain. She states she takes boiw-itk-tlzsyau ibuprofen daily. She states she has taken tramadol in the past for pain and it seemed to work well. Will place her on this as well as steroids. Recommend follow-up with primary care and/or one of her orthopedic specialists. No radiology studies performed this visit Discharge Plan Discharge Patient Disposition: Home Clinical Impression: Acute pain of left hip Condition: Stable Prescriptions: New Medrol (Garcia) 4 mg tablets,dose pack See Rx Instructions .ROUTE .COMPLEX Qty: 21 0RF Rx Instructions: orally per package directions Continued ibuprofen 600 mg tablet 600 mg PO Q8H PRN (Reason: Pain) tramadol 50 mg tablet 50 mg PO Q8H PRN (Reason: pain) Qty: 14 0RF Discontinued codeine-guaifenesin 10-100 mg/5 mL liquid 5 ml PO Q6H PRN (Reason: cough) Qty: 120 0RF No Action fluticasone propionate 50 mcg/actuation spray,suspension 1 spray intranasal DAILY PRN (Reason: ALLERGIES) Rx Instructions: administer into each nostril omeprazole 20 mg capsule,delayed release(DR/EC) 20 mg PO DAILY zolpidem 5 mg tablet, sublingual 5 mg sublingual BEDTIME amlodipine 5 mg tablet 5 mg PO DAILY lovastatin 20 mg tablet 20 mg PO DAILY bisacodyl [Dulcolax (bisacodyl)] 5 mg Tablet,Delayed Release (Dr/Ec) 10 mg PO DAILY PRN (Reason: Constipation) levocetirizine 5 mg tablet 5 mg PO DAILY PRN (Reason: Allergy Symptoms) Women's 50 Plus Daily Formula 400 mcg-500 mg calcium-20 mcg Tablet 1 tab PO DAILY benzonatate 200 mg capsule 200 mg PO TID PRN (Reason: cough) Qty: 30 0RF cholecalciferol (vitamin D3) 25 mcg (1,000 unit) tablet 1,000 mcg PO DAILY Discharge Orders: Discharge ED (Routine); Ordered 06/19/24 Ordered By: Kateryna Carrillo Referrals: Luanne Clements MD [Primary Care Provider] - Patient Instructions: Opioid Safety, Pain Management Activity Restrictions/Additional Instructions: As we discussed I would like you to follow-up with your primary care provider or one of your orthopedic specialists if hip pain does not begin to improve over the next 1 to 2 weeks. Coding Level of Care Code ED Classification And Treatment Director for Arash Brooks
[2024-06-19 16:21] VITALS: BP 142/70; PULSE 97; RESP 16; TEMP 36.8; O2SAT 97
== END 2024-06-19 16:19 | disposition home or self-care (01) ==
PROVIDERS: Emergency Provider Physician Assistant; PCP Family Medicine
DX: M25.552 Pain in left hip (principal)
CPT/HCPCS: 99283

== ENCOUNTER → 2024-07-20 08:39 | Outpatient (BNVA) | payer MEDICARE, SELFPAY | PROVIDERS: PCP Family Medicine; Visit Provider Orthopaedic Surgery | DX: M43.16 Spondylolisthesis, lumbar region (principal) | CPT/HCPCS: 72100; 99213 ==

== ENCOUNTER 2024-08-14 09:16 | Emergency (ER) | payer MEDICARE, SELFPAY ==
[2024-08-14 09:24] VITALS: BP 157/89; PULSE 114; RESP 16; TEMP 36.7; O2SAT 94
--- NOTE | 2024-08-14 09:32 | CT_ITS ---
WS: [id number] CT ABDOMEN AND PELVIS WITH CONTRAST HISTORY: abdominal pain, constipation, nausea TECHNIQUE: Imaging performed of the abdomen and pelvis with IV contrast. Single phase imaging of the abdomen. Coronal and sagittal reformats are submitted. All CT scans at [facility] use at [address] one of these dose optimization techniques: automated exposure control; mA and/or kV adjustment per patient size (includes targeted exams where dose is matched to clinical indication); or iterative re construction. IV CONTRAST: Omnipaque 350; 100 mL IV. Oral contrast: Yes. DLP: 466.90 mGy.cm COMPARISON: None available. Lower thorax: Subsegmental atelectasis at the lung bases. Heart is normal size. No hiatal hernia. Liver/biliary system: Normal size with no intrahepatic dilatation. Gallbladder: Normal. No gallstones or wall thickening. No pericholecystic fluid. Pancreas: Diffuse atrophy. Spleen: Normal size spleen. Peripherally enhancing low-attenuation mass measures 12 mm. Adrenal glands: Normal. Right kidney: Normal. Left kidney: Tiny too small to characterize cortical hypodensities. No obstruction. Aorta: Moderate atherosclerosis with no aneurysm. Advanced plaque within the aorta and great vessels. Lymphadenopathy: None. Free fluid: None. GI tract: Nondistended stomach. No small bowel obstruction. There is marked fecal retention throughou t the entire colon. Inspissated material greatest within the RIGHT colon. Cecum diameter 5.9 cm. Ther e are scattered diverticula but no acute diverticulitis. Abdominal wall: Unremarkable abdominal wall. No hernia. Pelvis: No free fluid or adenopathy within the pelvis. Portions of the pelvis are being obscured by a rtifact from the RIGHT hip arthroplasty. Bones: Marked increase in the lumbar lordosis. Compression fractures at T10, T11, T12 and L1. Prior R IGHT hip arthroplasty. Cyst associated with the RIGHT hip arthroplasty. CT/CT abdomen pelvis w con* [id number] IMPRESSION: 1. Diffuse marked constipation. No obstruction. 2. No renal obstruction. 3. Subsegmental atelectasis at the lung bases. 4. Moderate atherosclerotic plaque within the aorta and great vessels. 5. Osteoporosis with compression fractures at T10, T11, T12 and L1. Fractures were also present on the radiograph from 07/20/2024.
--- NOTE | 2024-08-14 09:32 | ED_ITS ---
HPI - Abdominal Pain 2 General: Chief Complaint: Abdominal Pain Stated Complaint: Constipated Time Seen by Provider: 08/14/24 09:18 Source: patient Mode of arrival: ambulatory Limitations: no limitations History of Present Illness: Patient is an 89-year-old female who presents to the ED today with complaint of constipation and abdominal pain. Patient states she has not moved her bowels in approximately 2 weeks. She states she initially had diarrhea but that subsided and now she is constipated. She does take Tramadol daily. She states she has tried many dbgg-fhe-wcbbccn therapies without relief. She has been seen at the [facility] walk-in clinic as well as her primary care provider Dr. Sung over the past two weeks. She reportedly spoke to him today who referred her here. She states her abdomen hurts and feels bloated and has intermittent cramping. She reports lack of appetite and nausea. She has not had any vomiting. No fevers. Has not noticed any significant rectal pain, masses/bulges, or blood in her stools. MD elicited complaint: abdominal pain and other (constipation) Pertinent past history: none Onset (ago): week(s) Pain Consistency: constant Location: Diffuse Severity: mild Quality: cramping Radiation: none Migration to: no migration Exacerbating factors: nothing Relieving factors: nothing Associated Symptoms: Reports change in bowel habits, constipation and GI cramping Related Data Home Medications Medication Instructions Recorded Confirmed amlodipine 5 mg tablet 5 mg PO DAILY 02/19/21 08/14/24 lovastatin 20 mg tablet 20 mg PO DAILY 02/19/21 08/14/24 omeprazole 20 mg capsule,delayed 20 mg PO DAILY 02/19/21 08/14/24 release zolpidem 5 mg sublingual tablet 5 mg sublingual BEDTIME 02/19/21 08/14/24 levocetirizine 5 mg tablet 5 mg PO DAILY PRN Allergy Symptoms 01/12/23 08/14/24 gdvzczdb-hmh-wgyki ac 400 1 tab PO DAILY 01/12/23 08/14/24 mcg-calcium carb 500 mg-vit K1 20 mcg tablet (Women's 50 Plus Daily Formula) bisacodyl 5 mg tablet,delayed 10 mg PO DAILY PRN Constipation 06/13/23 08/14/24 release (Dulcolax (bisacodyl)) cholecalciferol (vitamin D3) 25 1,000 mcg PO DAILY 06/01/24 08/14/24 mcg (1,000 unit) tablet pantoprazole 40 mg tablet,delayed 1 mg PO DAILY 08/14/24 08/14/24 release polyethylene glycol 3350 17 gram 1 g PO DAILY PRN Constipation 08/14/24 08/14/24 oral powder packet Previous Rx's Medication Instructions Recorded tramadol 50 mg tablet 50 mg PO Q8H PRN pain #14 tabs 06/19/24 lactulose 10 gram/15 mL (15 mL) 20 g (30 mL) PO BID 5 days #300 mL 08/14/24 oral solution Allergies Allergy/AdvReac Type Severity Reaction Status Date / Time celecoxib [From Celebrex] Allergy ALGY-Hives Verified 07/20/24 08:52 Review of Systems 2 GI: Reports: constipation, GI cramping and change in bowel habits PFSH ED 2 PFSH: Surgical History History of total right hip arthroplasty [address] Sara Wick Social History Smoking and tobacco/nicotine status: never used tobacco/nicotine Physical Exam 2 Const: COMMON NORMALS: no acute distress, average body habitus, patient oriented x3, no limitations, healthy appearing, alert and well nourished G ENERAL APPEARANCE: cooperative ORIENTATION/CONSCIOUSNESS: Yes awake, Yes oriented to person, Yes oriented to place and Yes oriented to time Eye: COMMON NORMALS: no scleral icterus Resp: COMMON NORMALS: normal respiratory effort and clear to auscultation bilaterally AUSCULTATION: clear to auscultation bilaterally Cardio: COMMON NORMALS: regular rate and regular rhythm RATE: regular rate RHYTHM: regular rhythm GI: COMMON NORMALS: Soft to palpation and No hepatosplenomegaly present I NSPECTION: Yes abdominal distension AUSCULTATION: Yes normoactive bowel sounds PALPATION: Yes Soft to palpation, Yes Tenderness to palpation present (GI), No Guarding due to palpation present (GI), No Rigid due to palpation and Yes No hepatosplenomegaly present RECTAL EXAM: visual inspection normal and no fecal impaction : COMMON NORMALS: Yes no CVA tenderness BLADDER/KIDNEY EXAM: Yes no CVA tenderness Back/Pelvis: COMMON NORMALS: no CVA tenderness and thoracic and lumbar spine normal to inspection Extremity: GENERAL: Yes normal exam except as noted Neuro: JEFF COMA SCALE: document GCS findings Jeff coma scale eye opening: Spontaneous [place] coma scale verbal response: Orientated Jeff coma scale motor response: Obey commands [place] coma scale total score: 15 COMMON NORMALS: patient oriented x3, moves all extremities, no focal motor deficits, no sensory deficits noted and gait normal SENSORIUM/ORIENTATION: Yes alert, Yes oriented to person, Yes oriented to place and Yes oriented to time Skin: COMMON NORMALS: no rashes or lesions noted GENERAL SKIN EXAM: no rashes or lesions noted Course 2 Vital Signs: Vital signs: Vital Signs Temperature 98.1 F 08/14/24 09:24 Pulse Rate 98 08/14/24 13:07 Respiratory Rate 16 08/14/24 13:07 Blood Pressure 164/80 08/14/24 13:07 Pulse Oximetry 92 08/14/24 13:07 Oxygen Delivery Me thod Room Air 08/14/24 10:49 MDM - Abdominal Pain Medical Decision Making Patient is an 89-year-old female here for constipation over the past 2 weeks. She was complaining of abdominal pain/cramping/distention, nausea, decreased appetite. Had been seen/treated twice before ED visit today. Labs/CT scan initiated and ultimately unremarkable. She does have diffuse marked constipation. No obstruction. She was ordered an enema to be given prior to discharge however RN did not see order and this was not completed. Did give her mixture of milk of mag/mineral oil/lactulose to drink when she gets home. Will place her on lactulose over the next several days for bowel cleanse. Recommend follow-up with primary care later this week if symptoms are not improving. Return to ED precautions discussed. Differential Diagnosis Likely abdominal pain and constipation Medical Records I reviewed the patient's medical records. Lab Data I reviewed the patient's lab results. 08/14/24 10:05 08/14/24 10:05 Labs/Radiology: Radiology Impressions Abdomen/Pelvis CT 08/14/24 09:32 IMPRESSION: 1. Diffuse marked constipation. No obstruction. 2. No renal obstruction. 3. Subsegmental atelectasis at the lung bases. 4. Moderate atherosclerotic plaque within the aorta and great vessels. 5. Osteoporosis with compression fractures at T10, T11, T12 and L1. Fractures were also present on the radiograph from 07/20/2024. Laboratory Results WBC 5.79 10^3/uL (3.29-11.43) 08/14/24 10:05 RBC 4.39 10^6/uL (3.85-5.65) 08/14/24 10:05 Hgb 13.40 g/dL (11.27-16.99) 08/14/24 10:05 Hct 41.9 % (36-47) 08/14/24 10:05 MCV 95.4 fl (85-98) 08/14/24 10:05 MCH 30.5 pg (27-33) 08/14/24 10:05 MCHC 32.0 g/dL (30-55) 08/14/24 10:05 RDW 12.8 % (12.1-15.1) 08/14/24 10:05 Plt Count 236 10^3/cmm (157-399) 08/14/24 10:05 MPV 8.3 fL (7.4-10.4) 08/14/24 10:05 Neut % (Auto) 76.8 % 08/14/24 10:05 Lymph % (Auto) 14.3 % 08/14/24 10:05 [place] % (Auto) 6.7 % 08/14/24 10:05 Eos % (Auto) 1.4 % 08/14/24 10:05 Baso % (Auto) 0.5 % 08/14/24 10:05 Neut # (Auto) 4.44 10^3/uL (1.8-7.7) 08/14/24 10:05 Lymph # (Auto) 0.8 10^3/uL (0.8-4.8) 08/14/24 10:05 [place] # (Auto) 0.4 10^3/uL (0.2-0.9) 08/14/24 10:05 Eos # (Auto) 0.1 10^3/uL (0.0-0.8) 08/14/24 10:05 Baso # (Auto) 0.0 10^3/uL (0.0-0.1) 08/14/24 10:05 Nucleated RBC % (auto) 0 % 08/14/24 10:05 Nucleated RBCs # 0.0 /100WBC 08/14/24 10:05 Sodium 139 mmol/L (136-145) 08/14/24 10:05 Potassium 3.9 mmol/L (3.5-5.1) 08/14/24 10:05 Chloride 100 mmol/L (98-107) 08/14/24 10:05 Carbon Dioxide 26 mmol/L (22-29) 08/14/24 10:05 Anion Gap 16.9 (5-19) 08/14/24 10:05 BUN 15 mg/dL (8-23) 08/14/24 10:05 Creatinine 0.7 mg/dL (0.5-0.9) 08/14/24 10:05 GFR Calculation Not Reportable 08/14/24 10:05 Glucose 104 mg/dL (65-115) 08/14/24 10:05 Calculated Osmolality 289 mOsm/kg (285-295) 08/14/24 10:05 Calcium 9.0 mg/dL (8.5-10.5) 08/14/24 10:05 Total Bilirubin 0.7 mg/dL (0.15-1.2) 08/14/24 10:05 AST 28 U/L (0-32) 08/14/24 10:05 ALT 10 U/L (0-33) 08/14/24 10:05 Alkaline Phosphatase 115 U/L (35-105) H 08/14/24 10:05 Total Protein 7.3 g/dL (6.6-8.7) 08/14/24 10:05 Albumin 4.1 g/dL (3.5-5.2) 08/14/24 10:05 Globulin 3.2 g/dL (1.3-4.6) 08/14/24 10:05 Urine Color Dark yellow (Yellow) A 08/14/24 10:05 Urine Appearance Cloudy (CLEAR) A 08/14/24 10:05 Urine pH 6.0 (5-7) 08/14/24 10:05 Ur Specific [place] 1.020 (1.005-1.030) 08/14/24 10:05 Urine Protein Trace (Negative) A 08/14/24 10:05 Urine Glucose (UA) Negative (Normal) 08/14/24 10:05 Urine Ketones Trace (Negative) 08/14/24 10:05 Urine Blood Negative (Negative) 08/14/24 10:05 Urine Nitrate Negative (Negative) 08/14/24 10:05 Urine Bilirubin Negative (Negative) 08/14/24 10:05 Urine Urobilinogen 1.0 mg/dL (Negative) 08/14/24 10:05 Ur Leukocyte Esterase Negative (Negative) 08/14/24 10:05 Urine RBC 3-5 /hpf (0-2) 08/14/24 10:05 Urine WBC 0-5 /hpf (0-5) 08/14/24 10:05 Ur Squamous Epith Cells 11-20 /hpf (0-5) 08/14/24 10:05 Uric Acid Crystals 15-25 /hpf H 08/14/24 10:05 Amorphous Sediment Not Reportable 08/14/24 10:05 Urine Bacteria None seen /hpf (NONE) 08/14/24 10:05 Hyaline Casts 4.95 /lpf 08/14/24 10:05 All radiology interpretation(s) finalized by discharge Discharge Plan Discharge Patient Disposition: Home Clinical Impression: Constipation Qualifiers: Constipation type: unspecified constipation type Qualified Code(s): K59.00 - Constipation, unspecified Condition: Stable Prescriptions: New lactulose 10 gram/15 mL (15 mL) solution 20 g PO BID 5 Days Qty: 300 0RF No Action omeprazole 20 mg capsule,delayed release(DR/EC) 20 mg PO DAILY zolpidem 5 mg tablet, sublingual 5 mg sublingual BEDTIME amlodipine 5 mg tablet 5 mg PO DAILY lovastatin 20 mg tablet 20 mg PO DAILY bisacodyl [Dulcolax (bisacodyl)] 5 mg Tablet,Delayed Release (Dr/Ec) 10 mg PO DAILY PRN (Reason: Constipation) tramadol 50 mg tablet 50 mg PO Q8H PRN (Reason: pain) Qty: 14 0RF polyethylene glycol 3350 17 gram powder in packet 1 g PO DAILY PRN (Reason: Constipation) pantoprazole 40 mg tablet,delayed release (DR/EC) 1 mg PO DAILY levocetirizine 5 mg tablet 5 mg PO DAILY PRN (Reason: Allergy Symptoms) Women's 50 Plus Daily Formula 400 mcg-500 mg calcium-20 mcg Tablet 1 tab PO DAILY cholecalciferol (vitamin D3) 25 mcg (1,000 unit) tablet 1,000 mcg PO DAILY Discharge Orders: Discharge ED (Routine); Ordered 08/14/24 Ordered By: Kateryna Carrillo Referrals: Luanne Clements MD [Primary Care Provider] - Patient Instructions: Constipation (DC) Activity Restrictions/Additional Instructions: You are administered an enema here in the emergency department. You were given a oral mixture to drink when you get home to help alleviate constipation. You will have a prescription for lactulose that you may use over the next several days to help clear your bowel has your CT scan did show diffuse marked constipation. You may continue using your Dulcolax and stool softener. Please follow-up with your primary care provider by the end of the week if symptoms are not improving. Coding Level of Care Code ED Sales Solutions Representative for Arash Brooks
[2024-08-14 10:16] VITALS: BP 140/75; PULSE 96; RESP 16; O2SAT 93
[2024-08-14 10:23] LABS: Basophils % 0.5 %; Eosinophils # 0.1 10^3/uL (0.0-0.8); Eosinophils % 1.4 %; Hematocrit 41.9 % (36-47); Lymphocytes # 0.8 10^3/uL (0.8-4.8); Lymphocytes % 14.3 %; Mean Corpuscular Hemoglobin 30.5 pg (27-33); Mean Corpuscular Volume 95.4 fl (85-98); Mean Platelet Volume 8.3 fL (7.4-10.4); Monocytes # 0.4 10^3/uL (0.2-0.9); Monocytes % 6.7 %; Neutrophils # 4.44 10^3/uL (1.8-7.7); Neutrophils % 76.8 %; Nucleated Red Blood Cells % 0 %; Platelet Count 236 10^3/cmm (157-399); Red Blood Count 4.39 10^6/uL (3.85-5.65); Red Cell Distribution Width 12.8 % (12.1-15.1); White Blood Count 5.79 10^3/uL (3.29-11.43)
[2024-08-14 10:29] LABS: Bilirubin Urine Negative (Negative); Blood Urine Negative (Negative); Glucose Urine UA Negative (Normal); Ketones Urine Trace (Negative); Leukocyte Esterase Urine Negative (Negative); Nitrate Urine Negative (Negative); Protein Urine Trace (Negative); Urine Appearance Cloudy (CLEAR); Urine Color Dark Yellow (Yellow)
[2024-08-14 10:34] LABS: Alanine Aminotransferase 10 U/L (0-33); Albumin Level 4.1 g/dL (3.5-5.2); Alkaline Phosphatase 115 U/L (35-105); Aspartate Amino Transferase 28 U/L (0-32); Blood Urea Nitrogen 15 mg/dL (8-23); Carbon Dioxide 26 mmol/L (22-29); Chloride 100 mmol/L (98-107); Globulin 3.2 g/dL (1.3-4.6); Glucose 104 mg/dL (65-115); Osmolality Calculated 289 mOsm/kg (285-295); Sodium 139 mmol/L (136-145); Total Bilirubin 0.7 mg/dL (0.15-1.2); Total Protein 7.3 g/dL (6.6-8.7)
[2024-08-14 10:35] LABS: Add Urine Microscopic? YES; Bacteria Urine None Seen /hpf; Hyaline Casts Urine 4.95 /lpf; WBC Urine 0-5 /hpf (0-5)
[2024-08-14 10:46] LABS: Anion Gap 16.9 (5-19); Potassium 3.9 mmol/L (3.5-5.1)
[2024-08-14 10:49] VITALS: BP 133/69; PULSE 85; RESP 16; O2SAT 91
[2024-08-14 11:03] LABS: UA Slide Review UA Slide Review Perf; Uric Acid Crystals Urine 15-25 /hpf
[2024-08-14 11:04] LABS: Add Urine Culture? No
[2024-08-14] MEDS: methylPREDNISolone sod succ 40 mg/mL INJ IVP (11:11)
[2024-08-14] MEDS: diphenhydrAMINE 50 mg/mL SDV 1mL 25 MG IVP (11:11)
[2024-08-14] MEDS: iohexol 350 mg/mL 500 mL Btl (per mL) IV (11:40)
[2024-08-14] MEDS: lactulose oral liq 20 gm/30 mL UDC 30 GM PO (12:28)
[2024-08-14] MEDS: mineral oil 30 mL UDC PO (12:29)
[2024-08-14] MEDS: magnesium hydroxide 30 mL UDC PO (12:29)
[2024-08-14 13:07] VITALS: BP 164/80; PULSE 98; RESP 16; O2SAT 92
== END 2024-08-14 12:35 | disposition home or self-care (01) ==
PROVIDERS: Emergency Provider Physician Assistant; PCP Family Medicine
DX: K59.00 Constipation, unspecified (principal)
CPT/HCPCS: 74177; 80053; 81001; 85025; 96374; 96375; 99285; J1200; J2919

== ENCOUNTER 2024-08-23 08:53 | Outpatient (CLI) | payer MEDICARE, SELFPAY ==
--- NOTE | 2024-08-23 09:02 | CT_ITS ---
WS: [id number] CT FACIAL BONES TECHNIQUE: Noncontrast facial bones with coronal and sagittal reformatted images. CLINICAL INFORMATION: JAW PAIN COMPARISON: None. DLP: 572.[address] scans at [facility] use at least one of these dose optimization techniques: automated e xposure control; mA and/or kV adjustment per patient size (includes targeted exams where dose is matc hed to clinical indication); or iterative reconstruction. FINDINGS: Paranasal sinuses and mastoid air cells are well aerated. Normal posterior nasopharynx. Normal paraph aryngeal fat. Parotid glands are normal. Visualized submandibular glands. 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 No dislocation. Dental artifact degrades some images. Mandible is normal in appearance. No evidence o f osteomyelitis. Normal maxilla. No evidence of osteomyelitis. No evidence of odontogenic abscess or facial cellulitis . No fluid collections. CT/CT facial bones wo con* [id number] IMPRESSION: 1. No evidence of mandibular or maxillary osteomyelitis. 2. No drainable fluid collections or abscess. 3. No evidence of facial cellulitis. 4. Advanced degenerative changes temporomandibular joints with flattening of t he mandibular condyles. 5. Paranasal sinuses and mastoid air cells are well aerated.
== END 2024-08-23 08:54 | disposition home or self-care (01) ==
PROVIDERS: PCP Family Medicine; Visit Provider Family Medicine
DX: M26.643 Arthritis of bilateral temporomandibular joint (principal)
CPT/HCPCS: 70486

== ENCOUNTER → 2025-02-14 09:12 | Outpatient (BNVA) | payer MEDICARE, SELFPAY | PROVIDERS: PCP Family Medicine; Visit Provider Specialist | DX: M25.551 Pain in right hip (principal); Z96.641 Presence of right artificial hip joint | CPT/HCPCS: 73502; 99214 ==

== ENCOUNTER → 2025-02-28 08:50 | Outpatient (BNVA) | payer MEDICARE, SELFPAY | PROVIDERS: PCP Family Medicine; Visit Provider Specialist | DX: M17.11 Unilateral primary osteoarthritis, right knee (principal); G57.91 Unspecified mononeuropathy of right lower limb | CPT/HCPCS: 73560; 73565; 99214 ==

== ENCOUNTER → 2025-06-13 08:38 | Outpatient (BNVA) | payer MEDICARE, SELFPAY | PROVIDERS: PCP Family Medicine; Visit Provider Specialist | DX: M17.11 Unilateral primary osteoarthritis, right knee (principal); G57.91 Unspecified mononeuropathy of right lower limb | CPT/HCPCS: 20610; J7318 ==